=== PATIENT | female | born 1950 | race Caucasian/White ===

== ENCOUNTER 2021-02-04 07:56 | Outpatient (CLI) | payer MEDICARE, SELFPAY ==
--- NOTE | ~2021-02-04 | MM_ITS ---
EXAMINATION: MM screening siobhan BI w audrey HISTORY: Screening TECHNIQUE: Craniocaudal and mediolateral oblique 3-D tomosynthesis images were obtained and synthetic 2-D images were generated. CAD analysis was submitted and interpreted. COMPARISON: Comparison to multiple prior studies sequentially, with oldest reviewed study dated 10/14. BREAST PARENCHYMAL COMPOSITION: The breasts are almost entirely fatty. FINDINGS: There is no evidence of suspicious mass, calcification, or architectural distortion to sugg est malignancy in either breast. There has been no suspicious interval change. IMPRESSION: 1. No mammographic evidence of malignancy. 2. Recommend routine screening mammography in one year. BI-RADS Category 1: Negative Reviewed, dictated and finalized at location A.
== END 2021-02-04 07:57 | disposition home or self-care (01) ==
LOC: CHSIMG 08:00
PROVIDERS: PCP Internal Medicine; Visit Provider Internal Medicine
DX: Z12.31 Encounter for screening mammogram for malignant neoplasm of breast (principal)
CPT/HCPCS: 77063; 77067

== ENCOUNTER 2021-03-19 11:33 | Outpatient (CLI) | payer MEDICARE, SELFPAY ==
--- NOTE | ~2021-03-19 | US_ITS ---
EXAMINATION: US venous doppler [facility] DATE: 03/19/2021 12:07 INDICATION: Left lower extremity pain and swelling TECHNIQUE: Stoner scale images without and with compression and Doppler images of the left lower extrem ity veins were obtained. COMPARISON: None FINDINGS: The left common femoral vein, profunda femoral vein, femoral vein, popliteal vein, peroneal trunk, and posterior tibial veins are patent. There is thrombosis of the greater saphenous vein. IMPRESSION: 1. Superficial venous thrombosis of the greater saphenous vein. No evidence of deep venous thrombosis . Reviewed, dictated and finalized at location B. IMPRESSION: 1. Superficial venous thrombosis of the greater saphenous vein. No evidence of deep venous thrombosis.
== END 2021-03-19 11:34 | disposition home or self-care (01) ==
LOC: CHSLAB 11:35
PROVIDERS: PCP Internal Medicine; Visit Provider Internal Medicine
DX: M79.605 Pain in left leg (principal); M79.89 Other specified soft tissue disorders
CPT/HCPCS: 93971

== ENCOUNTER 2021-04-21 11:06 | Outpatient (CLI) | payer MEDICARE, SELFPAY ==
--- NOTE | ~2021-04-21 | US_ITS ---
EXAMINATION: US venous doppler [facility] EXAM DATE: 04/21/2021 11:30 INDICATION: Left leg pain, thrombophlebitis. TECHNIQUE: Multiple grayscale, color flow and Doppler images of the left lower extremity deep venous system obtained and reviewed. There is no prior study for comparison. FINDINGS: LEFT SIDE Common femoral: -------- Normal. Profunda femoral: ------- Normal. Femoral: Normal. Popliteal: Normal. Posterior tibial: --------- Normal. Peroneal: Normal. Gastrocnemius: Not visualized. Soleus: Not visualized. Greater saphenous: -----Nonthrombosed proximal and mid aspects. Anterior branch at ankle demonstratin g thrombus. Finding was present on prior study as well. Lesser saphenous: ------ Not visualized. IMPRESSION: 1. Left ankle thrombophlebitis. 2. No DVT. Reviewed, dictated and finalized at location B.
== END 2021-04-21 11:07 | disposition home or self-care (01) ==
LOC: CHSIMG 11:08
PROVIDERS: PCP Internal Medicine; Visit Provider Internal Medicine
DX: I80.3 Phlebitis and thrombophlebitis of lower extremities, unspecified (principal)
CPT/HCPCS: 93971

== ENCOUNTER 2021-07-12 19:08 | Inpatient (IN) | payer MEDICARE, SELFPAY ==
--- NOTE | ~2021-07-12 | XR_ITS ---
EXAMINATION: XR chest 1V portable EXAM DATE: 07/12/2021 20:22 INDICATION: Dyspnea w/ cough and weakness. TECHNIQUE: Portable AP frontal chest x-ray was obtained. There is no prior study for comparison. FINDINGS: There is right midlung zone granuloma. Patchy ill-defined left mid and lower lung zone airs pace disease, could be developing acute infectious process. There is no pneumothorax suspected. No si zable pleural effusion. Cardiomediastinal silhouette is normal. IMPRESSION: 1. Ill-defined left mid and lower lung zone airspace disease, could be developing pneumonia. Reviewed, dictated and finalized at location A. ER MACHINE OPERATOR IMPRESSION: 1. Ill-defined left mid and lower lung zone airspace disease, could be develop ing pneumonia.
[2021-07-12 20:06] VITALS: BP 108/70; PULSE 75; RESP 18; TEMP 36.8; O2SAT 90
[2021-07-12 20:21] LABS: Hematocrit 37.8 % (35.0-42.0); Hemoglobin 12.7 g/dL (11.7-13.8); Mean Corpuscular HGB Conc 33.6 g/dL (32.0-36.0); Mean Corpuscular Hemoglobin 31.5 pg (27.0-31.0); Mean Corpuscular Volume 93.8 fL (78.0-102.0); Mean Platelet Volume 9.7 fl (9.2-11.8); Platelet Count Result 178 K/mm3 (150-420); Red Blood Count 4.03 M/mm3 (4.20-5.40); Red Cell Distribution Width 14.4 % (11.6-14.4); White Blood Count 5.7 K/mm3 (4.8-10.8)
[2021-07-12 20:24] VITALS: PULSE 75; RESP 18; O2SAT 90
[2021-07-12] MEDS: SODIUM CHLORIDE 0.9% IV 1,000 ML 999 ML IV CONT (20:34)
[2021-07-12 20:35] LABS: Alanine Aminotransferase 55 U/L (14-59); Albumin Level 3.2 g/dL (3.4-5.0); Alkaline Phosphatase 66 U/L (46-116); Anion Gap 11 mmol/L (8-16); Aspartate Amino Transferase 64 U/L (15-37); Bilirubin,Total 0.5 mg/dL (0.00-1.00); Blood Urea Nitrogen 77 mg/dL (7-18); Calcium 8.4 mg/dL (8.5-10.1); Carbon Dioxide 24 mmol/L (21-32); Chloride 105 mmol/L (98-108); Estimated CRCL calculation 11 ml/min; Estimated Glomerular Filt Rate 19; Glucose 144 mg/dL (70-99); Osmolality Calculated 316 mOsm/kg (285-295); Potassium 4.7 mmol/L (3.5-5.1); Sodium 140 mmol/L (136-145); Total Protein 7.6 g/dL (6.4-8.2)
[2021-07-12 20:39] LABS: Band Neutrophils Percent 1 % (0-6); Basophils Absolute Manual 0.05 K/mm3 (0-0.1); Basophils Percent Manual 1 % (0-1); Eosinophils Percent Manual 0 % (1-6); Lymphocytes Absolute Manual 0.85 K/mm3 (1.1-4.5); Lymphocytes Percent Manual 15 % (18-44); Monocytes Absolute Manual 0.34 K/mm3 (0.1-0.90); Monocytes Percent Manual 6 % (3-9); Neutrophils Absolute Manual 4.44 K/mm3 (1.7-7.2); Neutrophils Percent Manual 77 % (46-73); Platelet Estimate Adequate (Adequate); Total Cells Counted 100
[2021-07-12] MEDS: ALBUTEROL SULFATE (*SP) INHALER 4 PUFF INHALATION (20:43)
[2021-07-12 20:55] VITALS: PULSE 75
[2021-07-12 20:57] LABS: Influenza A QL RT-PCR Negative (Negative); Influenza B QL RT-PCR Negative (Negative); SARS-CoV-2 RNA PCR Positive (Negative)
--- NOTE | 2021-07-12 21:06 | PC.NURSE ---
Pt reports Diarrhea for a week, now reporting thrust and requesting water. LULY Stephenson advised. Order received for Ice chips. Pt tolerating well.
--- NOTE | 2021-07-12 21:32 | ECG_ITS ---
Measurements Intervals [place] Rate: 77 P: 46 IA: 155 QRS: 16 QRSD: 110 T: 11 QT: 373 QTc: 424 Interpretive Statements SINUS RHYTHM WITH SINUS ARRHYTHMIA BORDERLINE T WAVE ABNORMALITY- INFERIOR LEADS BASELINE ARTIFACT- I, II, III, AVR, AVL, AVF BORDERLINE ECG Electronically Signed On 07-13-2021 5:26:05 ANALYSIS MANAGER by Anders Dukes D.O.
[2021-07-12] MEDS: ACETAMINOPHEN 500 MG TABLET 1000 MG PO (21:43)
--- NOTE | 2021-07-12 21:55 | PC.NURSE ---
Pt cont sating in the upper 80s and 90s. ERMD advised Pt placed on 2 L o2 per N/C. Pt currently sating 94 with supplement.
--- NOTE | 2021-07-12 22:05 | ED.SOB ---
HPI - SOB/Dyspnea General Chief Complaint: Unspecified Stated Complaint: POSSIBLE COVID + Time Seen by Provider: 07/12/21 20:00 Source: patient and family Mode of arrival: wheelchair Limitations: clinical condition History of Present Illness HPI Narrative: 71-year-old woman with a history of hypertension comes in today complaining of fever, fatigue, shortness of breath, weakness, body aches, headache, nonproductive cough and congestion that has been present for the past 10 days. She states her symptoms are getting gradually worse. She states she has had diarrhea every day and her son states that she has not been urinating. She denies history heart and lung disease, smoking, and diabetes has had no chest pain, sputum production, or hemoptysis. Her was recently admitted to this hospital for hypoxia and COVID pneumonia. MD elicited complaint: shortness of breath and cough Onset (ago): day(s) Timing: constant and progressively worsening Severity: severe Exacerbating factors: exertion Relieving factors: rest and upright position Associated symptoms: fever, cough, orthopnea, nausea/vomiting, dizziness and lightheadedness Treatment prior to arrival: none Related Data Home oxygen amount: none Home Medications Medication Instructions Recorded Confirmed olmesartan-hydrochlorothiazide 40 tablet PO DAILY 07/12/21 07/12/21 Allergies Allergy/AdvReac Type Severity Reaction Status Date / Time No Known Allergies Allergy Verified 07/12/21 21:08 Review of Systems Review of Systems: All systems reviewed & are unremarkable except as noted in HPI and below Constitutional: Constitutional: Denies chills, Reports fatigue, Reports fever(s) and Reports weakness Eyes: Eyes: Reports change in vision and Reports photophobia ENT: Denies dysphagia, Reports nasal congestion and Denies sore throat Cardiovascular: Cardiovascular: Denies chest pain and Denies radiating jaw, neck or arm pain Respiratory: Respiratory: Reports chest congestion, Reports cough, Reports dyspnea and Reports wheezing Gastrointestinal: Gastrointestinal: Denies abdominal pain, Reports diarrhea, Denies nausea and Denies vomiting Genitourinary: Genitourinary: Denies nocturia and Denies dysuria Musculoskeletal: Musculoskeletal: Reports back pain, Reports myalgias, Denies arthralgias and Denies joint swelling Integumentary/Breasts: Skin/Breast: Denies pruritus, Denies erythema and Denies rash Neurologic: Denies confusion, Denies vertigo, Denies dizziness, Denies syncope, Reports headache(s), Denies focal weakness and Reports weakness Hematologic/Lymphatic: Hematologic/Lymphatic: Denies easy bleeding and Denies easy bruising Allergic/Immunologic: Allergic/Immunologic: Denies lip swelling and Denies throat swelling [facility] Past Medical History Medical History Hypertension Social History Social History (Updated 07/12/21 @ 22:09 by Mati Stephenson MD) Smoking status: Never smoker Alcohol intake: never Substance use: never Living arrangements: with family Exam Const: General: ill appearing acutely Nutritional Appearance: obese Limitations: altered mental status (Mildly somnolent. Talks in a whisper) Other: [id number] acute distress. HENMT: Head: normal to inspection Ears: external ears normal, TM's normal bilaterally and EAC's normal General nose exam: Normal nares present Face and sinus: normal facial exam Mouth: Yes dry mucous membranes Throat: posterior oropharynx normal Eyes: Conjunctivae: conjunctivae normal Pupils: Equal, round and reactive pupils present EOM: EOMs intact bilaterally Resp: Effort & Inspection: normal respiratory effort and not labored Auscultation: clear to auscultation bilaterally, no rales, no rhonchi and no wheezes Cardio: Rate: regular rate Rhythm: regular rhythm Heart sounds: no murmurs GI: GI Palp: Yes Soft to palpation, No Tenderness to palpat
--- NOTE | 2021-07-12 22:48 | PC.NURSE ---
Pt. report called to Tereza NEGRETE at this time. Pt. Resting comfortable on stretcher preped for trans to floor.
[2021-07-12 23:30] VITALS: O2SAT 92
[2021-07-12 23:35] VITALS: PULSE 66; RESP 18; O2SAT 92
[2021-07-13] VITALS (7 sets, daily range): BP systolic 97–119; BP diastolic 54–69; PULSE 66–94; RESP 16–20; TEMP 36.2–37.1; O2SAT 90–96
--- NOTE | 2021-07-13 00:25 | ADMGEN ---
This patient, Alicia Castrejon, was admitted to 2nd Floor Room 210-1. Patient/family oriented to hospital policies and general routines including ID bracelet, bed and alarms, visiting hours, pain management, procedures, bathroom and other care routines, personal items, smoking policy, room service/diet, and visiting hours. Information on how to activate the Rapid Response Team has been discussed. Patient/Family are encouraged to report perceived risks to care and to ask questions if they do not understand what they are told or what they should do.
[2021-07-13] MEDS: SODIUM CHLORIDE 0.9% IV 1,000 ML 150 ML IV CONT ×2 (00:44→11:05)
--- NOTE | 2021-07-13 01:00 | PC.NURSE ---
Size 16 geronimo catheter inserted as ordered for accurate I/O due to renal fluid. Immediate return of yellow urine.
[2021-07-13 05:37] LABS: Hematocrit 34.6 % (35.0-42.0); Hemoglobin 11.1 g/dL (11.7-13.8); Mean Corpuscular HGB Conc 32.1 g/dL (32.0-36.0); Mean Corpuscular Hemoglobin 30.2 pg (27.0-31.0); Mean Corpuscular Volume 94.3 fL (78.0-102.0); Mean Platelet Volume 9.7 fl (9.2-11.8); Platelet Count Result 165 K/mm3 (150-420); Red Blood Count 3.67 M/mm3 (4.20-5.40); Red Cell Distribution Width 14.4 % (11.6-14.4); White Blood Count 4.1 K/mm3 (4.8-10.8)
[2021-07-13] MEDS: ALBUTEROL SULFATE (*SP) INHALER 4 PUFF INHALATION ×4 (05:48→20:39)
[2021-07-13 05:51] LABS: Alanine Aminotransferase 47 U/L (14-59); Albumin Level 2.7 g/dL (3.4-5.0); Alkaline Phosphatase 59 U/L (46-116); Anion Gap 12 mmol/L (8-16); Aspartate Amino Transferase 52 U/L (15-37); Bilirubin,Total 0.3 mg/dL (0.00-1.00); Blood Urea Nitrogen 72 mg/dL (7-18); Calcium 7.7 mg/dL (8.5-10.1); Carbon Dioxide 23 mmol/L (21-32); Chloride 107 mmol/L (98-108); Estimated CRCL calculation 13 ml/min; Estimated Glomerular Filt Rate 24; Glucose 123 mg/dL (70-99); Osmolality Calculated 316 mOsm/kg (285-295); Potassium 4.4 mmol/L (3.5-5.1); Sodium 142 mmol/L (136-145); Total Protein 6.5 g/dL (6.4-8.2)
[2021-07-13 06:05] LABS: Band Neutrophils Percent 3 % (0-6); Basophils Percent Manual 0 % (0-1); Eosinophils Absolute Manual 0.04 K/mm3 (0.02-0.5); Eosinophils Percent Manual 1 % (1-6); Lymphocytes Absolute Manual 1.27 K/mm3 (1.1-4.5); Lymphocytes Percent Manual 31 % (18-44); Monocytes Absolute Manual 0.08 K/mm3 (0.1-0.90); Monocytes Percent Manual 2 % (3-9); Neutrophils Percent Manual 63 % (46-73); Platelet Estimate Adequate (Adequate); Total Cells Counted 100
[2021-07-13 06:06] LABS: Atypical Lymphocytes Present
[2021-07-13] MEDS: DEXAMETHASONE SOD PHOS INJ 4 MG/ML VIAL 6 MG IV PUSH (08:56)
[2021-07-13] MEDS: ENOXAPARIN 40 MG/0.4 ML SYRINGE SUB-Q (08:57)
[2021-07-13] MEDS: guaiFENesin/DEXTROMETHORPHAN 5 ML UDC 10 ML PO ×3 (10:38→22:12)
--- NOTE | 2021-07-13 16:01 | PM.IMPN ---
Subjective Date/time seen: 07/13/21 16:01 Pt states her breathing is no better or worse other than a persistent cough that is non-productive today. No CP, Abdominal issues, fevers, chills, muscle or body aches, decreased appetite, taste changes. Pt has no immediate concerns at this time. BMP and weight in chart do not appear correct. Review of Systems Constitutional: Constitutional: Reports no additional constitutional complaints, Denies body ache(s), Denies chills, Denies fever(s) and Reports poor appetite Cardiovascular: Cardiovascular: Reports no additional cardiovascular complaints, Denies chest pain, Denies chest pain at rest and Denies chest pain with activity Respiratory: Respiratory: Reports cough, Reports dyspnea and Reports dyspnea on exertion Gastrointestinal: Gastrointestinal: Denies abdominal pain Genitourinary: Genitourinary: Reports no additional female genitourinary complaints Musculoskeletal: Musculoskeletal: Reports no additional musculoskeletal complaints and Reports as per HPI Neurologic: Reports system reviewed and no additional complaints, except as documented, Reports as per HPI, Denies vertigo and Denies dizziness Psychiatric: Psychiatric: Reports no additional psychiatric complaints Exam Const: General: cooperative, no acute distress, well developed, alert, awake, Physically active and tired appearing Nutritional Appearance: obese morbidly obese Resp: Effort & Inspection: Actively coughing dry Auscultation: rhonchi (throughout) Cardio: Rate: regular rate Heart sounds: S1 normal heart sound present and S2 normal heart sound present GI: GI Palp: Yes Soft to palpation, No Tenderness to palpation present (GI) and No Guarding due to palpation present (GI) Auscultation: normal bowel sounds Skin: General skin exam: normal color and dry skin Neuro: General: oriented to person, oriented to place, oriented to time and CN's II-XI intact bilaterally (grossly intact) Cognition (Neuro): normal cognition Speech: normal speech Motor exam (neuro): 5/5 motor strength present throughout Extrem: General: no pedal edema and no calf tenderness Psych: Appearance: grossly normal Mental Status: mental status grossly normal Speech and movement: Normal speech and movement present Affect: normal affect Attitude: cooperative Thought process: Normal thought process present Objective Data Vital Signs Vital Signs: Vital Signs - 24 hr 07/12/21 20:06 07/12/21 20:24 07/12/21 20:55 Temperature 98.2 F Pulse Rate 75 75 75 Respiratory Rate 18 18 Blood Pressure 108/70 Pulse Oximetry 90 90 07/12/21 23:30 07/12/21 23:35 07/13/21 00:00 Temperature 97.9 F Pulse Rate 66 66 Respiratory Rate 18 16 Blood Pressure 109/66 Pulse Oximetry 92 92 92 07/13/21 04:00 07/13/21 08:00 07/13/21 12:00 Temperature 97.6 F 97.2 F L 98.7 F Pulse Rate 66 70 79 Respiratory Rate 16 20 20 Blood Pressure 101/59 L 104/66 97/54 L Pulse Oximetry 92 96 90 Intake/Output Intake/Output: Intake & Output 07/10/21 07/11/21 07/12/21 07/13/21 23:59 23:59 23:59 23:59 Intake Total 1050 2427.5 Output Total 200 Balance 1050 2227.5 Meds/Results Medications: Active Medications Generic Name Dose Route Start Last Admin Trade Name Freq PRN Reason Stop Dose Admin Albuterol 4 puff 07/13/21 06:30 07/13/21 13:39 Albuterol Sulfate (*Sp) Inhaler INHALATION 4 puff QIDRT GOLDEN Administration Dexamethasone Sodium Phosphate 6 mg 07/13/21 09:00 07/13/21 08:56 Dexamethasone Sod Phos Inj 4 Mg/Ml Vial IV PUSH 07/22/21 09:01 6 mg DAILY GOLDEN Administration Enoxaparin Sodium 40 mg 07/13/21 09:00 07/13/21 08:57 Enoxaparin 40 Mg/0.4 Ml Syringe SUB-Q 40 mg DAILY GOLDEN Administration Guaifenesin/Dextromethorphan 10 ml 07/13/21 14:00 07/13/21 13:38 Guaifenesin/Dextromethorphan 5 Ml Udc PO 10 ml Q8HR GOLDEN Administration Azithromycin 500 mg in 250 mls @ 250 mls/hr 07/13/21 21:00 Zithromax IVPB
--- NOTE | 2021-07-13 16:08 | PM.IMHP ---
H&P: HPI History of Present Illness Date/Time: 07/13/21 16:08 Alicia Castrejon is a 71 year old female admitted for COVID, ARF, and Pneumonia. her symptoms have been ongoing for about 10 days. She tested positive for COVID on 07/12/2021. Pt states she has been having increased SOB and feeling tired. Her appetite has been decreased and food just does not taste good enough to want to eat. Pt denies CP, abdominal issues like nausea and vomiting or diarrhea, no dizziness, fevers or chills. She has a PMHx of HTN and takes Olmesartan-HCTZ. <DIPIKA Hu - Last Filed: 07/13/21 16:24> Chief Complaint: SOB, weakness, headache, non-productive cough <DIPIKA Hu - Last Filed: 07/13/21 16:24> Review of Systems Constitutional: Constitutional: Reports no additional constitutional complaints, Denies body ache(s), Denies chills, Denies fever(s) and Reports poor appetite <DIPIKA Hu - Last Filed: 07/13/21 16:24> ENT: Denies vertigo and Denies dizziness <DIPIKA Hu - Last Filed: 07/13/21 16:24> Cardiovascular: Cardiovascular: Reports no additional cardiovascular complaints, Denies chest pain, Denies chest pain at rest, Denies chest pain with activity, Reports dyspnea and Reports dyspnea on exertion <DIPIKA Hu - Last Filed: 07/13/21 16:24> Respiratory: Respiratory: Reports cough, Reports dyspnea and Reports dyspnea on exertion <DIPIKA Hu - Last Filed: 07/13/21 16:24> Gastrointestinal: Gastrointestinal: Denies abdominal pain <DIPIKA Hu - Last Filed: 07/13/21 16:24> Genitourinary: Genitourinary: Reports no additional female genitourinary complaints <DIPIKA Hu - Last Filed: 07/13/21 16:24> Musculoskeletal: Musculoskeletal: Reports no additional musculoskeletal complaints and Reports as per HPI <DIPIKA Hu - Last Filed: 12/07/21 16:24> Neurologic: Reports system reviewed and no additional complaints, except as documented, Reports as per HPI, Denies vertigo and Denies dizziness <DIPIKA Hu - Last Filed: 07/13/21 16:24> Psychiatric: Psychiatric: Reports no additional psychiatric complaints <DIPIKA Hu - Last Filed: 07/13/21 16:24> [facility] Past Medical History Medical History: Medical History Hypertension <DIPIKA Hu - Last Filed: 07/13/21 16:24> Social History Social History: Social History Smoking status: Never smoker Alcohol intake: never Substance use: never Living arrangements: with family Spiritual care concerns: No <DIPIKA Hu - Last Filed: 07/13/21 16:24> Meds Home Medications and Allergies Home medications: Home Medications Medication Instructions Recorded Confirmed Type olmesartan-hydrochlorothiazide 40 tablet PO DAILY 07/12/21 07/12/21 History <DIPIKA Hu - Last Filed: 07/13/21 16:24> Allergies/Adverse reactions: Allergies Allergy/AdvReac Type Severity Reaction Status Date / Time codeine Allergy Unknown Verified 07/13/21 01:35 strawberry Allergy Unknown Verified 07/13/21 01:35 <DIPIKA Hu - Last Filed: 07/13/21 16:24> Vital Signs Vital Signs - 24 hr 07/12/21 20:06 07/12/21 20:24 07/12/21 20:55 Temperature 98.2 F Pulse Rate 75 75 75 Respiratory Rate 18 18 Blood Pressure 108/70 Pulse Oximetry 90 90 07/12/21 23:30 07/12/21 23:35 07/13/21 00:00 Temperature 97.9 F Pulse Rate 66 66 Respiratory Rate 18 16 Blood Pressure 109/66 Pulse Oximetry 92 92 92 07/13/21 04:00 07/13/21 08:00 07/13/21 12:00 Temperature 97.6 F 97.2 F L 98.7 F Pulse Rate 66 70 79 Respiratory Rate 16 20 20 Blood Pressure 101/59 L 104/66 97/54 L Pulse Oximetry 92 96 90 <Sunil Richardson, STEAM BLOCKER-C - Last Filed: 07/13/21 16:24> Exam Const: General: cooperative, no acute
[2021-07-14] VITALS (9 sets, daily range): BP systolic 106–140; BP diastolic 61–80; PULSE 72–88; RESP 20–22; TEMP 36–37.1; O2SAT 92–96
[2021-07-14] MEDS: SODIUM CHLORIDE 0.9% IV 1,000 ML 75 ML IV CONT ×2 (00:20→13:00)
[2021-07-14 05:24] LABS: Hematocrit 32.8 % (35.0-42.0); Hemoglobin 10.8 g/dL (11.7-13.8); Mean Corpuscular HGB Conc 32.9 g/dL (32.0-36.0); Mean Corpuscular Hemoglobin 31.1 pg (27.0-31.0); Mean Corpuscular Volume 94.5 fL (78.0-102.0); Mean Platelet Volume 9.6 fl (9.2-11.8); Platelet Count Result 203 K/mm3 (150-420); Red Blood Count 3.47 M/mm3 (4.20-5.40); White Blood Count 3.3 K/mm3 (4.8-10.8)
[2021-07-14 05:40] LABS: Alanine Aminotransferase 43 U/L (14-59); Albumin Level 2.6 g/dL (3.4-5.0); Alkaline Phosphatase 61 U/L (46-116); Anion Gap 12 mmol/L (8-16); Aspartate Amino Transferase 38 U/L (15-37); Bilirubin,Total 0.3 mg/dL (0.00-1.00); Blood Urea Nitrogen 38 mg/dL (7-18); Calcium 7.9 mg/dL (8.5-10.1); Carbon Dioxide 23 mmol/L (21-32); Chloride 109 mmol/L (98-108); Estimated CRCL calculation 19 ml/min; Estimated Glomerular Filt Rate 37; Glucose 142 mg/dL (70-99); Osmolality Calculated 309 mOsm/kg (285-295); Potassium 4.5 mmol/L (3.5-5.1); Sodium 144 mmol/L (136-145); Total Protein 6.7 g/dL (6.4-8.2)
[2021-07-14] MEDS: guaiFENesin/DEXTROMETHORPHAN 5 ML UDC 10 ML PO ×3 (06:07→21:00)
[2021-07-14] MEDS: ALBUTEROL SULFATE (*SP) INHALER 4 PUFF INHALATION ×4 (06:08→20:30)
[2021-07-14] MEDS: DEXAMETHASONE SOD PHOS INJ 4 MG/ML VIAL 6 MG IV PUSH (08:25)
[2021-07-14] MEDS: ENOXAPARIN 40 MG/0.4 ML SYRINGE SUB-Q (08:25)
--- NOTE | 2021-07-14 11:21 | PC.NURSE ---
up in room this am. no o2 on. spo 86%. with o2@ 2l per nc and rest for immediately back up to 93%
--- NOTE | 2021-07-14 12:04 | PM.IMPN ---
Progress Note: A&P Assessment and Plan (1) Pneumonia: Qualifiers: Laterality: left Lung location: lower lobe of lung Pneumonia type: due to unspecified organism Qualified Code(s): J18.9 - Pneumonia, unspecified organism <Sunil RichardsonHARDEEPC - Last Filed: 07/14/21 12:20> Code(s): J18.9 - Pneumonia, unspecified organism <Sunil RichardsonWILD-C - Last Filed: 07/14/21 12:20> Status: Acute <Sunil RichardsonWILD-C - Last Filed: 07/14/21 12:20> Assessment and Plan: Pt is on Azithromycin and Rocephin, supplemental O2 at 2 L/min with SpO2 90-96%, non-productive cough, she has Albuterol and Robitussin DM 07/14/2021 Continue with Azithromycin and Rocephin, no change in oxygen demand and continues on 2 L/min NC with SpO2 92% or better, Desats with activity and recovers quickly <Sunil RichardsonWILD-C - Last Filed: 07/14/21 12:20> (2) COVID-19: Code(s): U07.1 - COVID-19 <Sunil RichardsonIWLD-C - Last Filed: 07/14/21 12:20> Status: Acute <Sunil RichardsonWILD-C - Last Filed: 07/14/21 12:20> Assessment and Plan: Decadron, Azithromycin, Rocephin, Supplemental Oxygen, Renal function too low for Remdesivir, Isolation, monitoring respiratory status, Cardiac Monitoring 07/14/2021 Continue as noted above, Cr 1.42, eCrCl 19 both improved a little <Sunil RichardsonWILD-C - Last Filed: 07/14/21 12:20> (3) Acute renal failure (ARF): Qualifiers: Acute renal failure type: unspecified Qualified Code(s): N17.9 - Acute kidney failure, unspecified <Sunil RichardsonWILD-C - Last Filed: 07/14/21 12:20> Code(s): N17.9 - Acute kidney failure, unspecified <Sunil BaxterWILD herzog-C - Last Filed: 07/14/21 12:20> Status: Acute <DIPIKA Hu - Last Filed: 07/14/21 12:20> Assessment and Plan: Pt currently with IVF at 75 ml/h for gentyl hydration, no signs of fluid overload, Cr improved and currently 2.07, with eCrCl 13, and eGFR at 24 07/14/2021 Renal function improving as noted under COVID-19 assessment, continue with IVF NS 75 ml/h and check in AM, encourage PO fluids. <DIPIKA Hu - Last Filed: 07/14/21 12:20> (4) Hypertension: Code(s): I10 - Essential (primary) hypertension <DIPIKA Hu - Last Filed: 07/14/21 12:20> Status: Acute <DIPIKA Hu - Last Filed: 07/14/21 12:20> Assessment and Plan: Current BP a little soft at 90s-110/50s-70, currently No BP medications given 07/14/2021 BP stable, HR 80s, continue without change at this time. <DIPIKA Hu - Last Filed: 07/14/21 12:20> Additional Plan I have examined this patient and agree with the physical examination, assessment and plan. The patient presented with pneumonia. Patient tested positive for COVID. The patient is on Rocephin, Zithromax and Decadron. The patient is not a candidate for remdesivir in view of her renal failure. <DIPIKA Hu - Last Filed: 07/14/21 12:20> Subjective Date/time seen: 07/14/21 12:04 Alicia sitting comfortably in her chair in no distress. States breathing is a little better. She states her coughing is improved. She denies SOB while sitting and no CP. Pt asked about her who is a Patient here and she was updated on his status. Pt has no other concerns at this time. <DIPIKA Hu - Last Filed: 07/14/21 12:20> Review of Systems Review of Systems: All systems reviewed & are unremarkable except as noted in HPI and below <DIPIKA Hu - Last Filed: 07/14/21 12:20> Exam Const: General: cooperative, comfortable, no acute distress, well developed, alert, awake and Physically active <DIPIKA Hu - Last Filed: 07/14/21 12:20> Nutritional Appearance: obese <DIPIKA Hu - Last Filed: 07/14/21 12:20> Resp: Effort & Inspection: normal respiratory effort <DIPIKA Hu - Last File
[2021-07-15] VITALS (7 sets, daily range): BP systolic 110–145; BP diastolic 60–79; PULSE 76–85; RESP 14–20; TEMP 36.7–37; O2SAT 92–94
[2021-07-15 05:13] LABS: Hematocrit 32.7 % (35.0-42.0); Hemoglobin 10.8 g/dL (11.7-13.8); Mean Corpuscular Hemoglobin 30.9 pg (27.0-31.0); Mean Corpuscular Volume 93.7 fL (78.0-102.0); Mean Platelet Volume 9.3 fl (9.2-11.8); Platelet Count Result 218 K/mm3 (150-420); Red Blood Count 3.49 M/mm3 (4.20-5.40); White Blood Count 4.4 K/mm3 (4.8-10.8)
[2021-07-15 05:33] LABS: Alanine Aminotransferase 52 U/L (14-59); Albumin Level 2.6 g/dL (3.4-5.0); Alkaline Phosphatase 60 U/L (46-116); Anion Gap 14 mmol/L (8-16); Aspartate Amino Transferase 48 U/L (15-37); Bilirubin,Total 0.3 mg/dL (0.00-1.00); Blood Urea Nitrogen 31 mg/dL (7-18); Carbon Dioxide 20 mmol/L (21-32); Chloride 111 mmol/L (98-108); Estimated CRCL calculation 44 ml/min; Estimated Glomerular Filt Rate 38; Glucose 133 mg/dL (70-99); Osmolality Calculated 308 mOsm/kg (285-295); Potassium 4.6 mmol/L (3.5-5.1); Sodium 145 mmol/L (136-145); Total Protein 6.6 g/dL (6.4-8.2)
[2021-07-15] MEDS: guaiFENesin/DEXTROMETHORPHAN 5 ML UDC 10 ML PO (06:10)
[2021-07-15] MEDS: ALBUTEROL SULFATE (*SP) INHALER 4 PUFF INHALATION ×2 (06:15→10:30)
[2021-07-15] MEDS: DEXAMETHASONE SOD PHOS INJ 4 MG/ML VIAL 6 MG IV PUSH (09:28)
[2021-07-15] MEDS: ENOXAPARIN 40 MG/0.4 ML SYRINGE 30 MG SUB-Q (09:29)
--- NOTE | 2021-07-15 11:25 | HOMEO2EVAL ---
Evaluation was performed at [facility] Home Oxygen Evaluation RC: Home Oxygen (O2) Evaluation Start: 07/15/21 10:52 Freq: ONCE Status: Active Protocol: RPE Activity Type Activity Date Activity User E-Sign Co-Sign Detail Recorded Client Recorded Date Recorded By Document 07/15/21 11:05 SJB [id number] 07/15/21 11:25 SJB Document 07/15/21 11:12 SJB [id number] 07/15/21 11:25 SJB 07/15/21 07/15/21 11:05 11:12 Home O2 Evaluation Test Phase Resting Exercise Oxygen Delivery Room Air Room Air Pulse Oximetry (90-100 %) 93 92 Pulse Rate (60-100 beats/min) 76 82 Activity Tolerance Good Rating of Perceived Dyspnea (PD) +1 Mild, Noticeable to the Participant but Not to an Observer Rate of Perceived Exertion (PE) 11 Fairly light Ambulation Distance (feet) 400 Home Oxygen Evaluation Comments Will begin walk Pt walked on r/a. pushing w/c on room air approx 400 ft. Tri very well, talking throughout exercise. Did well with PLB also. Sp02 was 92% on walk and HR WNL also . Treatment Charges O2 Evaluation - Inpatient
--- NOTE | 2021-07-15 11:32 | PM.DS ---
DS: Admitting Diagnosis Discharge Date 07/15/2021 Admitting Diagnosis COVID, ARF, Pneumonia, HTN DS: Discharge Diagnosis Discharge Diagnosis (1) Pneumonia: Qualifiers: Laterality: left Lung location: lower lobe of lung Pneumonia type: due to unspecified organism Qualified Code(s): J18.9 - Pneumonia, unspecified organism Code(s): J18.9 - Pneumonia, unspecified organism Status: Acute Assessment and Plan: Pt is on Azithromycin and Rocephin, supplemental O2 at 2 L/min with SpO2 90-96%, non-productive cough, she has Albuterol and Robitussin DM 07/14/2021 Continue with Azithromycin and Rocephin, no change in oxygen demand and continues on 2 L/min NC with SpO2 92% or better, Desats with activity and recovers quickly 07/15/2021 Will DC with Azithromycin to complete course, Pt had 6 minute walk test and does not qualify for home oxygen at this time. (2) COVID-19: Code(s): U07.1 - COVID-19 Status: Acute Assessment and Plan: Decadron, Azithromycin, Rocephin, Supplemental Oxygen, Renal function too low for Remdesivir, Isolation, monitoring respiratory status, Cardiac Monitoring 07/14/2021 Continue as noted above, Cr 1.42, eCrCl 19 both improved a little 07/15/2021 6 minute walk test performed and Pt does not qualify for home oxygen at this time. Will continue Decadron to complete course. Pt to quarantine total 10 days and then f/u with PCP. (3) Acute renal failure (ARF): Qualifiers: Acute renal failure type: unspecified Qualified Code(s): N17.9 - Acute kidney failure, unspecified Code(s): N17.9 - Acute kidney failure, unspecified Status: Acute Assessment and Plan: Pt currently with IVF at 75 ml/h for gentyl hydration, no signs of fluid overload, Cr improved and currently 2.07, with eCrCl 13, and eGFR at 24 07/14/2021 Renal function improving as noted under COVID-19 assessment, continue with IVF NS 75 ml/h and check in AM, encourage PO fluids. 07/15/2021 Improving, instructed Pt to drink more water throughout the day. Cr 1.37, eCrCl 44, Pt to follow up with PCP (4) Hypertension: Code(s): I10 - Essential (primary) hypertension Status: Acute Assessment and Plan: Current BP a little soft at 90s-110/50s-70, currently No BP medications given 07/14/2021 BP stable, HR 80s, continue without change at this time. 07/15/2021 VSS, No changes need or additions needed in medications. DS: Summary Hospital Course Hospital Course: Pt has done well recovering from her COVID. Her O2 requirement improved and she passed the home oxygen walk test. Time Spent with Patient Time attestation: Total time spent providing and/or coordinating discharge services: < 30 Minutes Exam Const: General: cooperative, comfortable, no acute distress, well developed, alert, awake and Physically active Nutritional Appearance: obese Resp: Effort & Inspection: normal respiratory effort and not labored Auscultation: rhonchi (minimal bases) Cardio: Rate: regular rate Heart sounds: S1 normal heart sound present and S2 normal heart sound present GI: GI Palp: Yes Soft to palpation and No Tenderness to palpation present (GI) Skin: General skin exam: normal color and dry skin Neuro: General: oriented to person, oriented to place and oriented to time Cranial nerves: Yes CN's II-XII intact bilaterally (grossly intact) Cognition (Neuro): normal cognition Speech: normal speech Motor exam (neuro): 5/5 motor strength present throughout Extrem: General: no pedal edema and no calf tenderness Psych: Affect: normal affect Attitude: cooperative Thought process: Normal thought process present DS: Data Data Completed and Pending Labs on day of discharge: Labs from last 24 hours 07/15/21 07/15/21 05:01 05:01 WBC 4.4 L RBC 3.49 L Hgb 10.8 L Hct 32.7 L MCV 93.7 MCH 30.9 MCHC 33.0 RDW 14.0 Plt Count 218 MPV 9.3 Sodium 145 Potassium 4.6 Chloride 111 H Carbon D
--- NOTE | 2021-07-15 14:48 | PC.NURSE ---
Pt discharged with VSS. Discharge instructions given to pt. Medication teaching done. Pt verbalized understanding of discharge instructions and medications. RN assisted pt to family car via WC and assisted into car.
[2021-07-22 09:57] LABS: Reference Lab Test Name PROCALCITONIN
== END 2021-07-15 14:40 | disposition home or self-care (01) | DRG 177 ==
LOC: CHSED 22:15 → CHS2ND 07-13 07:12
PROVIDERS: Nurse Practitioner Family; Admitting Provider Emergency Medicine; Emergency Provider Emergency Medicine; PCP Internal Medicine; Visit Provider Emergency Medicine
DX: U07.1 COVID-19 (principal); J18.9 Pneumonia, unspecified organism; N17.9 Acute kidney failure, unspecified; I10 Essential (primary) hypertension
CPT/HCPCS: 36415; 71045; 80053; 83605; 84145; 85025; 85027; 87040; 87502; 93005; 94618; 96361; 96365; 99285; A9270; C9803; J0456; J0696; J1100; J1650; J7030; U0003; U0005

== ENCOUNTER 2021-07-28 12:40 | Outpatient (CLI) | payer MEDICARE, SELFPAY ==
--- NOTE | ~2021-07-28 | XR_ITS ---
XR chest 2V DATE: 07/28/2021 12:59 INDICATION: Covid pneumonia TECHNIQUE: 2 views COMPARISON: 07/12/2021 portable AP chest FINDINGS: There are patchy infiltrates in both mid and lower lung zones suggesting bilateral pneumoni a. No pleural effusion or pulmonary vascular congestion or pneumothorax is detected. Normal heart size. Aortic calcification and mild unfolding. Diffuse osteopenia. There is dextroscoliosis and degenerative spurring of the thoracic spine. IMPRESSION: Patchy infiltrates in the mid and lower lung zones, new on the right since 07/12/2021 Reviewed, dictated and finalized at location B. OM FRAMING SPECIALIST IMPRESSION: Patchy infiltrates in the mid and lower lung zones, new on the righ t since 07/12/2021
== END 2021-07-28 12:41 | disposition home or self-care (01) ==
PROVIDERS: PCP Internal Medicine; Visit Provider Internal Medicine
DX: Z09 Encounter for follow-up examination after completed treatment for conditions other than malignant neoplasm (principal); U07.1 COVID-19; J12.82 Pneumonia due to coronavirus disease 2019
CPT/HCPCS: 71046

== ENCOUNTER 2021-08-25 12:17 | Outpatient (CLI) | payer MEDICARE, SELFPAY ==
--- NOTE | ~2021-08-25 | XR_ITS ---
EXAMINATION: XR chest 2V EXAM DATE: 08/25/2021 12:49 INDICATION: F/U COVID pneumonia in July. TECHNIQUE: Frontal and lateral projections of the chest obtained and reviewed. Comparison is made to prior examination from 07/28/2021. FINDINGS: There is some residual abdominal linear regions of atelectasis/scarring, with improvement in the other opacities compared to July. Right midlung zone granulomata. No pneumothorax or pleur al effusion. No evidence of acute airspace disease. Cardiomediastinal silhouette is normal. Mild thor acic spondylosis. IMPRESSION: Improvement in previously seen pneumonia with some scattered linear opacities consistent with atelectasis/scarring. Reviewed, dictated and finalized at location B. POT TENDER
== END 2021-08-25 12:18 | disposition home or self-care (01) ==
LOC: CHSIMG 12:19
PROVIDERS: PCP Internal Medicine; Visit Provider Internal Medicine
DX: J18.9 Pneumonia, unspecified organism (principal); Z51.89 Encounter for other specified aftercare
CPT/HCPCS: 71046

== ENCOUNTER 2021-11-29 14:32 | Outpatient (CLI) | payer MEDICARE, SELFPAY ==
--- NOTE | ~2021-11-29 | XR_ITS ---
XR chest 2V DATE: 11/29/2021 14:50 INDICATION: History of Covid pneumonia TECHNIQUE: PA and lateral views COMPARISON: 08/25/2021 2 view chest FINDINGS: Normal heart size. No hilar or mediastinal enlargement. Mild aortic tortuosity. No hilar or mediastinal enlargement. No pulmonary infiltrate or consolidation, pleural effusion or pulmonary vascular congestion or pneumo thorax is detected. Dextro scoliosis and degenerative spurring of the thoracic spine. IMPRESSION: No active cardiopulmonary disease Reviewed, dictated and finalized at location A.
== END 2021-11-29 14:33 | disposition home or self-care (01) ==
LOC: CHSIMG 14:33
PROVIDERS: PCP Internal Medicine; Visit Provider Internal Medicine
DX: Z09 Encounter for follow-up examination after completed treatment for conditions other than malignant neoplasm (principal); Z86.16 Personal history of COVID-19; Z87.01 Personal history of pneumonia (recurrent)
CPT/HCPCS: 71046

== ENCOUNTER 2022-04-20 13:00 | Outpatient (NON) | payer MEDICARE, SELFPAY | END 2022-04-20 13:01 | disposition home or self-care (01) | PROVIDERS: PCP Internal Medicine; Visit Provider Surgery | DX: Z86.010 Personal history of colon polyps (principal) | CPT/HCPCS: 88305 ==

== ENCOUNTER 2022-11-08 08:31 | Outpatient (CLI) | payer MEDICARE, SELFPAY ==
--- NOTE | ~2022-11-08 | US_ITS ---
EXAMINATION: US right upper quadrant DATE: 11/08/2022 08:58 INDICATION: Right upper quadrant abdominal pain. TECHNIQUE: Multiple grayscale and Doppler ultrasound images of the abdomen were obtained. COMPARISON: None FINDINGS: The visualized portions of the head, body, and tail of the pancreas are normal. There is di ffuse hepatic steatosis. No liver surface nodularity. There is normal flow in main portal vein. The g allbladder is normal in size and contains sludge. No gallstones or gallbladder wall thickening. There is no sonographic Piña sign. The common duct is normal and measures 4 mm. IMPRESSION: 1. Diffuse hepatic steatosis. 2. Gallbladder sludge. No evidence of acute cholecystitis. Reviewed, dictated and finalized at location A.
== END 2022-11-08 08:32 | disposition home or self-care (01) ==
LOC: CHSIMG 08:33
PROVIDERS: PCP Internal Medicine; Visit Provider Internal Medicine
DX: R10.11 Right upper quadrant pain (principal); K76.0 Fatty (change of) liver, not elsewhere classified; K83.9 Disease of biliary tract, unspecified
CPT/HCPCS: 76705

== ENCOUNTER 2022-12-12 07:57 | Outpatient (CLI) | payer MEDICARE, SELFPAY ==
--- NOTE | ~2022-12-12 | NM_ITS ---
EXAMINATION: NM hepatobiliary w pharm DATE: 12/12/2022 10:23 INDICATION: Right upper quadrant abdominal pain. COMPARISON: Ultrasound 11/08/2022 TECHNIQUE: 6.1 mCi Tc-99m mebrofenin (Choletec) was administered intravenously. Scintigraphic images of the abdomen were obtained for one hour. Then, 2.0 mcg sincalide (Kinevac) IV was administered, an d imaging was continued for 30 minutes. FINDINGS: There is normal clearance of radiotracer from the blood pool. There is homogeneous tracer u ptake by the liver. Activity progresses to the bowel and gallbladder. Gallbladder ejection fraction (GBEF) was 15%. Note that most patients with gallbladder dysfunction have GBEF < 35%, which overlaps with the broad normal range of 10-90%. IMPRESSION: 1. Gallbladder ejection fraction in the lower range of normal. Note that this value overlaps with th e range of values that may be seen with gallbladder dysfunction and/or chronic cholecystitis if there is appropriate clinical correlation. Reviewed, dictated and finalized at location A. IMPRESSION: 1. Gallbladder ejection fraction in the lower range of normal. Note that this value overlaps with the range of values that may be seen with gallbladder dysfu nction and/or chronic cholecystitis if there is appropriate clinical correlatio nHayden
== END 2022-12-12 07:58 | disposition home or self-care (01) ==
LOC: CHSIMG 07:58
PROVIDERS: PCP Internal Medicine; Visit Provider Internal Medicine
DX: R10.11 Right upper quadrant pain (principal)
CPT/HCPCS: 78227; A9537; J2805

== ENCOUNTER 2023-03-14 08:59 | Outpatient (CLI) | payer MEDICARE, SELFPAY ==
--- NOTE | 2023-03-14 09:06 | ECG_ITS ---
Measurements Intervals Daphne Rate: 56 P: 40 WY: 161 QRS: 16 QRSD: 97 T: 16 QT: 433 QTc: 418 Interpretive Statements SINUS BRADYCARDIA OTHERWISE NORMAL ELECTROCARDIOGRAM COMPARED TO ECG 07/12/2021 21:55:59 SINUS BRADYCARDIA NOW PRESENT Electronically Signed On 03-14-2023 13:21:42 CDT by Dewey Tucker M.D.
[2023-03-14 09:33] LABS: Alanine Aminotransferase 22 U/L (6-35); Alkaline Phosphatase 81 U/L (38-126); Amylase 94 U/L (30-110); Aspartate Amino Transferase 24 U/L (14-36); Bilirubin,Total 0.6 mg/dL (0.2-1.3); Lipase 226 U/L (23-300)
[2023-03-14 09:34] LABS: Anion Gap 5 mmol/L (8-16); Blood Urea Nitrogen 25 mg/dL (7-17); Calcium 9.1 mg/dL (8.4-10.2); Carbon Dioxide 25 mmol/L (22-30); Chloride 106 mmol/L (98-107); Estimated Glomerular Filt Rate 49; Glucose 135 mg/dL (65-110); Potassium 4.2 mmol/L (3.4-5.0); Sodium 136 mmol/L (137-145)
== END 2023-03-14 09:00 | disposition home or self-care (01) ==
LOC: ANHSURGERY 09:01
PROVIDERS: Anesthesiology; PCP Internal Medicine; Visit Provider Surgery
DX: K82.8 Other specified diseases of gallbladder (principal); I10 Essential (primary) hypertension; Z01.818 Encounter for other preprocedural examination
CPT/HCPCS: 36415; 80048; 80076; 82150; 83690; 86850; 86900; 86901; 93005

== ENCOUNTER 2023-03-17 01:15 | Day surgery (SDC) | payer MEDICARE, SELFPAY ==
[2023-03-13 11:18] VITALS: BMI 36.8
--- NOTE | 2023-03-13 11:28 | PC.NURSE ---
Report to the Outpatient Waiting Room, entrance under the green pavilion located off [facility], at time _1000 on date __03/17/23 . Planned Procedure Time: _1200 . Time changes happen often and if your time is changed the preop area will call you the afternoon before. - You and your visitor will be asked to self-screen and do not enter if you have any COVID symptoms. - A mask is optional within the hospital at this time. Patients may have clear liquids (water, carbonated beverages, clear teas, apple juice) until 3 hours prior to surgery with a maximum of 20 ounces. - No food from midnight until time of surgery - Infants may have breast milk until 4 hours before surgery, infant formula 6 hours prior to surgery. - Children will be allowed to drink immediately following surgery. If applicable, please bring a bottle or sippy cup to assist with drinking. Juice, water, soda, and popsicles are readily available. For infants on formula, please bring formula the day of surgery. Pacifiers are allowed. Take the following medications with a SIP of water the morning of surgery: EYE DROPS DO NOT STOP ANY OF YOUR OTHER PRESCRIPTION MEDICATIONS PRIOR TO SURGERY ?EXCEPT THE FOLLOWING Medications to discontinue per physician NONE Date to take last dose HIBICLENS SHOWER MORNING OF SURGERY Please no make-up, nail tajik, hairspray, perfume, deodorant, or body powder the day of surgery. No jewelry (including any body piercings) or valuables the day of surgery, leave them at home. Please take a shower or bath the night before, or the morning of, surgery with an antibacterial soap. Wear comfortable, loose fitting clothing. Children are encouraged to wear pajamas. - Jewelry must be removed prior to entering the operating room. Rings and piercings that are not removed may be cut off. - The hospital will not accept responsibility for valuables. - Please leave all valuables, including medications, at home the day of surgery. If you are going home after surgery, a licensed motor coach bus driver must drive you home. - NO public transportation without another adult if you receive anesthesia. - We recommend that an adult stay with you for 24 hours following discharge. - We also recommend that you do not drive, make important decision, drink alcoholic beverages, or take any drugs that were not prescribed by your health care provider for at least 24 hours after your discharge time. Follow any additional instructions given to you from your surgeon. If you or anyone in your household have experienced Covid symptoms in the past week, please notify your surgeon or the nurse liaison at the phone number below for possible testing. Telephone instructions given to __PATIENT and asked if any additional questions and then verbalized understanding. Patient advised to call surgeon office or pre surgery nurse liaison [phone] if any additional questions.
[2023-03-17] VITALS (9 sets, daily range): BP systolic 104–146; BP diastolic 45–71; PULSE 56–74; RESP 15–20; TEMP 35.9–36.7; O2SAT 92–97
[2023-03-17] MEDS: LACTATED RINGERS 1,000 ML 30 ML IV CONT ×2 (11:00→12:56)
--- NOTE | 2023-03-17 11:01 | WPDANESEPPF ---
Anes - Initial Pre Proc Eval Procedure: Operation Date: 03/17/23 12:00 Proposed Procedures p Laparoscopic Cholecystectomy, Possible Open - Sunil Newman DO Date/Time: 03/17/23 11:01 Surgeon: Sunil Newman DO Pre Op Diagnosis: Gallbladder Sludge, Biliary Dyskinesia Patient Data Age: 72 Gender: F Height: 1.7 m Weight: 106.6 kg Allergies Allergy/AdvReac Type Severity Reaction Status Date / Time amoxicillin Allergy Severe Hives,BLURRY Verified 03/13/23 11:24 VISION codeine Allergy Vomiting Verified 03/13/23 11:10 strawberry Allergy Swelling Verified 03/13/23 11:10 Home Medications Medication Instructions Recorded Confirmed Type carboxymethylcellulose sodium 0.5 1 drp EACH EYE QID 03/13/23 03/13/23 History % eye drops in a dropperette (Refresh Plus) indapamide 1.25 mg tablet 1.25 mg PO DAILY 03/13/23 03/13/23 History nebivolol 20 mg tablet 20 mg PO HS 03/13/23 03/13/23 History olmesartan 40 mg tablet 40 mg PO DAILY 03/13/23 03/13/23 History rosuvastatin 10 mg tablet 10 mg PO DAILY 03/13/23 03/13/23 History sodium chloride 5 % eye drops 1 drp EACH EYE QID 03/13/23 03/13/23 History Patient hx anesthesia problems: post op nausea/vomiting Family hx anesthesia problems: none Results Review: All pre-operative results and documents have been reviewed as part of the pre-operative evaluation. [facility] Past Medical History Medical History Hypertension Social History Social History Smoking status: Never smoker Alcohol intake: never Substance use: never Substance use type: does not use Living arrangements: alone Spiritual care concerns: No Anes - Eval Final PreProcedure Day of Procedure 03/17/23 11:01 Patient weight: obese Heart: regular rate and rhythm Lungs: clear to auscultation Airway: Mallampati scale class II Neurological: alert and oriented Last oral intake: >/= 8 hours ASA classification: III Emergent: no Anesthetic plan: proceed Anesthesia type and monitoring: general ETT and standard monitoring Results Review: All pre-operative results and documents have been reviewed as part of the pre-operative evaluation. Informed Consent: The patient's anesthetic plan and its attendant risks and benefits were discussed with the patient/family/POA. Questions were solicited and answers provided to the satisfaction of the patient/family/POA.
[2023-03-17] MEDS: SCOPOLAMINE 1.5 MG PATCH TRANSDERM (11:30)
[2023-03-17] MEDS: ACETAMINOPHEN 500 MG TABLET 1000 MG PO (11:30)
[2023-03-17] MEDS: KETOROLAC 15 MG/ML VIAL (*BKC) IV PUSH (11:30)
--- NOTE | 2023-03-17 11:51 | WPDHPUPDATE1 ---
History and Physical Update Update Date/Time: 03/17/23 11:51 History and Physical has been reviewed, including an updated exam of the patient. There are NO changes in the patient's condition. Risks, benefits, and alternatives have been discussed and questions answered. Patient agrees to proceed with procedure.
--- NOTE | 2023-03-17 11:51 | PM.IMHP ---
H&P: HPI History of Present Illness Date/Time: 03/17/23 11:51 Chief Complaint: Biliary dyskinesia Narrative: 72 yo woman presents for laparoscopic cholecystectomy. She reports no changes since last seen in office. Review of Systems Review of Systems: All systems reviewed & are unremarkable except as noted in HPI and below Constitutional: Constitutional: Denies chills, Denies fever(s), Denies headache(s) and Denies weight loss Eyes: Eyes: Denies change in vision ENT: Denies dizziness, Denies headache(s), Denies neck mass and Denies throat swelling Cardiovascular: Cardiovascular: Denies chest pain, Denies lightheadedness and Denies dyspnea Respiratory: Respiratory: Denies cough, Denies dyspnea and Denies wheezing Gastrointestinal: Gastrointestinal: Denies abdominal pain, Denies change in bowel habits, Denies nausea and Denies vomiting Genitourinary: Genitourinary: Denies hematuria and Denies dysuria Musculoskeletal: Musculoskeletal: Reports as per HPI Integumentary/Breasts: Skin/Breast: Reports as per HPI Neurologic: Denies dizziness and Denies headache(s) Allergic/Immunologic: Allergic/Immunologic: Denies throat swelling and Denies wheezing [facility] Past Medical History Medical History Hypertension Social History Social History Smoking status: Never smoker Alcohol intake: never Substance use: never Substance use type: does not use Living arrangements: alone Spiritual care concerns: No Meds Home Medications and Allergies Home Medications Medication Instructions Recorded Confirmed Type carboxymethylcellulose sodium 0.5 1 drp EACH EYE QID 03/13/23 03/13/23 History % eye drops in a dropperette (Refresh Plus) indapamide 1.25 mg tablet 1.25 mg PO DAILY 03/13/23 03/13/23 History nebivolol 20 mg tablet 20 mg PO HS 03/13/23 03/13/23 History olmesartan 40 mg tablet 40 mg PO DAILY 03/13/23 03/13/23 History rosuvastatin 10 mg tablet 10 mg PO DAILY 03/13/23 03/13/23 History sodium chloride 5 % eye drops 1 drp EACH EYE QID 08/07/23 08/07/23 History Allergies Allergy/AdvReac Type Severity Reaction Status Date / Time amoxicillin Allergy Severe Hives,BLURRY Verified 03/13/23 11:24 VISION codeine Allergy Vomiting Verified 03/13/23 11:10 strawberry Allergy Swelling Verified 03/13/23 11:10 Exam Const: General: no acute distress and alert Orientation/consciousness: patient oriented x3 HENMT: Head: normocephalic and atraumatic Ears: hearing grossly normal bilaterally Face/Nose/Sinus: Normal nares present Mouth: Yes Normal oral and palatal mucosa present Eyes: Periorbital: periorbital findings normal Sclera: sclerae normal EOM: EOMs intact bilaterally Neck: Neck: normal visual inspection, no lymphadenopathy and trachea midline Chest: Chest palpation & inspection: normal inspection of the chest Resp: Effort & Inspection: normal respiratory effort Auscultation: clear to auscultation bilaterally Cardio: Jugular venous distension: no JVD Rate: regular rate Rhythm: regular rhythm Heart sounds: S1 normal heart sound present and S2 normal heart sound present Peripheral pulses: Peripheral pulses 2+ throughout GI: Inspection: normal to inspection GI Palp: Yes Soft to palpation, No Tenderness to palpation present (GI), No Guarding due to palpation present (GI) and No Rebound tenderness present Percussion: Yes normal to percussion Auscultation: normal bowel sounds : General: Yes no CVA tenderness Back/Spine/Pelvis: Back: no CVA tenderness Neuro: General: patient oriented x3, no focal motor deficits and CN's II-XI intact bilaterally Cognition (Neuro): normal cognition Speech: normal speech Motor exam (neuro): 5/5 motor strength present throughout Extrem: General: capillary refill normal and no clubbing, cyanosis or edema Assessment and Plan Assessment and
[2023-03-17] MEDS: ceFAZolin 2 GM/D5W 50 ML 2 GM/50 ML BAG IVPB (12:02)
[2023-03-17] MEDS: BUPIVACAINE/EPINEPHRINE 0.25% 50 ML VIAL 30 ML INFILTRATE (12:22)
--- NOTE | 2023-03-17 12:46 | W.PM.PROC2 ---
Procedure Note - Detailed Date of Procedure 03/17/23 Pre-op Diagnosis Gallbladder Sludge, Biliary Dyskinesia Post-op Diagnosis Same Procedure Performed Laparoscopic Cholecystectomy Surgeon Sunil Newman, DO Anesthesia General and Local (0.5% bupivacaine) Indications This is a 72-year-old woman who presented with intermittent right upper quadrant pain with nausea and vomiting. She had been experiencing symptoms for about the last 5 months. A gallbladder ultrasound was initially done and this showed evidence of gallbladder sludge. HIDA scan was then also done which showed a gallbladder ejection fraction of 15%. Discussions were made with the patient about treatment options and decision was made to proceed with laparoscopic cholecystectomy, possible open. Findings Laparoscopic cholecystectomy was performed. The gallbladder was slightly dilated and had a few pericholecystic adhesions. The gallbladder wall otherwise appeared normal and no definite gallstones were identified. There did appear to be a possible lymph node or area of indurated gallbladder wall right near the fundus of the gallbladder. Cystic duct appeared normal in size. The gallbladder was removed and sent to the lab for pathology. Description of Procedure Procedure as well as risks, benefits, and alternatives were discussed with patient. Written consent was obtained and placed in chart prior to procedure. The patient was brought back to surgical suite. Patient was placed in supine position on operating table. Time-out was done to confirm patient and procedure. Patient was then intubated by the anesthesia department. Abdomen was prepped and draped in sterile fashion using chlorhexidine prep. 0.5% bupivacaine with epinephrine was infiltrated at each site of incision. A 5 millimeter incision was made near the umbilicus, and a 5 millimeter Optiview trocar was advanced through the abdominal layers under direct visualization. Once inside the abdominal cavity, carbon dioxide was insufflated to create a pneumoperitoneum. The camera was inserted and the abdomen was inspected. No immediate abnormalities were identified. The patient was placed in reverse Trendelenburg position and rotated slightly to the left. An 11 millimeter incision was made in the subxiphoid region, and an 11 millimeter trocar was inserted under direct visualization. Two 5 millimeter incisions were made in the right upper quadrant, and two 5 millimeter trocars were inserted under direct visualization. The gallbladder was identified and grasped at the fundus and retracted superiorly. It was then grasped at the infundibulum retracted laterally. Careful dissection around the neck of the gallbladder was performed using blunt dissection with a [place] grasper and hook electrocautery. The cystic duct was identified, and a window was created behind it. The cystic artery was also identified and a window was created behind it. The critical view of safety was identified, visualizing the cystic duct running directly into the neck of the gallbladder, and the cystic artery running directly into the wall of the gallbladder. A 5 millimeter clip brownfield redevelopment site manager was then used to place 2 clips proximally and 1 clip distally on both the cystic duct and cystic artery. They were then both transected using endoscopic scissors. Once safely away from the germaine hepatitis, the gallbladder was dissected free from the liver bed using hook electrocautery. Hemostasis was achieved along the way. The gallbladder was removed completely and then removed through the subxiphoid port. The liver bed was then inspected. Hemostasis appeared adequate, and our clips appeared secure. The area was gently irrigated with sterile saline. No other abnormalities were seen. The patient was flattened out in bed, and 1 final inspection was made around the abdominal cavity. The subxiphoid port was removed, and a Alvaro Matthew cone was used to approximate the fascia with an
== END 2023-03-17 15:33 | disposition home or self-care (01) ==
PROVIDERS: PCP Internal Medicine; Visit Provider Surgery
PROC: 0FT44ZZ Resection of Gallbladder, Percutaneous Endoscopic Approach (ICD-10-PCS; CPT 47562; principal; 2023-03-17 12:00)
DX: K81.1 Chronic cholecystitis (principal); I10 Essential (primary) hypertension; E66.9 Obesity, unspecified; Z68.36 Body mass index [BMI] 36.0-36.9, adult
CPT/HCPCS: 47562; 36415; 80048; 80076; 82150; 83690; 86850; 86900; 86901; 88304; 93005; A9270; J0690; J1100; J1170; J1885; J2405; J2704; J3010; J7030; J7120

== ENCOUNTER 2024-05-06 13:26 | Outpatient (CLI) | payer MEDICARE, SELFPAY ==
--- NOTE | ~2024-05-06 | MM_ITS ---
EXAMINATION: MM screening siobhan BI w audrey HISTORY: Screening TECHNIQUE: Craniocaudal and mediolateral oblique 3-D tomosynthesis images were obtained and synthetic 2-D images were generated. CAD analysis was submitted and interpreted. COMPARISON: Comparison to multiple prior studies sequentially, with oldest reviewed study dated Isaiah rison to multiple prior studies sequentially, with oldest reviewed study dated 10/15/2015. . BREAST PARENCHYMAL COMPOSITION: Not dense: There are scattered areas of fibroglandular density. FINDINGS: The left breast is stable without evidence for malignancy. There is a new asymmetry in the lower outer quadrant of the right breast, posterior third. IMPRESSION: 1. New right breast asymmetry. 2. Additional mammographic views and possible breast ultrasound are recommended. BI-RADS Category 0: Incomplete: Needs additional imaging evaluation. Reviewed, dictated and finalized at location B. IMPRESSION: 1. New right breast asymmetry. 2. Additional mammographic views and possible breast ultrasound are recommended . BI-RADS Category 0: Incomplete: Needs additional imaging evaluation.
== END 2024-05-06 13:27 | disposition home or self-care (01) ==
LOC: CHSIMG 13:27
PROVIDERS: PCP Internal Medicine; Visit Provider Internal Medicine
DX: Z12.31 Encounter for screening mammogram for malignant neoplasm of breast (principal); R92.8 Other abnormal and inconclusive findings on diagnostic imaging of breast
CPT/HCPCS: 77063; 77067

== ENCOUNTER 2024-05-08 08:01 | Outpatient (RCR) | payer MEDICARE, SELFPAY ==
--- NOTE | 2024-05-08 08:23 | OPREHPOC ---
Outpatient Therapy Plan of Care This is a Multidisciplinary Plan of Care that may contain components documented by all disciplines (PT, OT, and ST.) PT Problem 1 PT Problem #1 Knowledge Deficit PT Goal 1 Goal / Goal Update The patient will be independent in a home exercise program. Target Visit 4 PT Problem 2 PT Problem #2 Impaired Balance PT Goal 1 Goal / Goal Update The patient will improve Tinetti Balance Score to 20/24 points indicating a low fall risk. Target Visit 10 PT Problem 3 PT Problem #3 Impaired Functional Mobil PT Goal 1 Goal / Goal Update The patient will be able to ambulate 1,200 feet without an AD and no LOB during the 6 minute walk test to improve community ambulation. Target Visit 10 PT Problem 4 PT Problem #4 Impaired Vestibular Syste PT Goal 1 Goal / Goal Update The patient will demonstrate a negative [place] Hallpike test bilaterally indicating resolved positional vertigo. Target Visit 10
--- NOTE | 2024-05-08 08:24 | PTOPEVAL1 ---
Assessment and note entered by Pallavi Cole, PT Evaluation Information Assessment Status Evaluation Subjective Information Pt notes a decline in her leg function and endurance since having Covid in July 2021. She feels she can walk on a treadmill or with cart but when she tries to walk unsupported she had difficulty. She denies consistent back pain and has not been diagnosed with spinal stenosis. She reports she fell in Spring 2023 when she tripped over a tree root. She had a knot on her head from hitting it on a nearby picnic table. She was afraid of falling asleep that night but did not go to the ER. She does feel off balance through the day when doing things like vacuuming, turning in bed, and laying down. She also has been working with her doctor on her blood pressure medication and she has had low blood pressure all summer. She has been averaging 80/50 but today it was 112/60. She does take her blood pressure daily. She is noticing lightheadedness with laying to/from sitting, sitting to standing, and rolling in bed. When she feels dizzy, it feels like she is moving. Reported Pain Level Pain Score 0: Self Report Assessment PT Clinical Summary Alicia Castrejon presents with decreased balance and dizziness. She has not had a fall since Spring 2023 when she tripped over a tree root however, she experiences dizziness with bed mobility and daily activities. She also feels limited with how far she can walk without support from a cart or treadmill. She objectively demonstrates a positive left Taryn Hallpike test indicating positional vertigo; decreased dynamic balance; and decreased bilateral hip strength. She demonstrates a moderate fall risk per standard balance tests. She will benefit from skilled PT to address these limitations. Plan of Care Interventions Gait Training,Neuro Re-education,Patient/Caregiver Educati,Therapeutic Activities,Therapeutic Exercise,Other Other Interventions vestibular rehab PT Services Indicated Yes Treatment Frequency and 2 times a week for 10 visits Duration These treatments will address the objective and functional deficits as defined above. The patient will be advanced safely and appropriately in order for the patient to progress towards his/her prior level of function. Additional exercises will be introduced and as well as a comprehensive home exercise program upon discharge, if needed, ?to ensure carryover of functional gains achieved in the clinic. This treatment plan has been reviewed and agreement upon by the patient.
--- NOTE | 2024-06-06 08:18 | OPREHPOC ---
Outpatient Therapy Plan of Care This is a Multidisciplinary Plan of Care that may contain components documented by all disciplines (PT, OT, and ST.) PT Problem 1 PT Problem #1 Knowledge Deficit PT Goal 1 Goal / Goal Update The patient will be independent in a home exercise program. Target Visit 4 Progress Met PT Goal 2 Goal / Goal Update continue to progress PT Problem 2 PT Problem #2 Impaired Balance PT Goal 1 Goal / Goal Update The patient will improve Tinetti Balance Score to 20/24 points indicating a low fall risk. Target Visit 10 Progress Met PT Problem 3 PT Problem #3 Impaired Functional Mobil PT Goal 1 Goal / Goal Update The patient will be able to ambulate 1,200 feet without an AD and no LOB during the 6 minute walk test to improve community ambulation. Target Visit 10 Progress Met PT Problem 4 PT Problem #4 Impaired Vestibular Syste PT Goal 1 Goal / Goal Update The patient will demonstrate a negative Taryn Hallpike test bilaterally indicating resolved positional vertigo. Target Visit 10 Progress Not Met PT Goal 2 Goal / Goal Update Continue PT Problem 5 PT Problem #5 Impaired Range of Motion PT Goal 1 Goal / Goal Update New Goal: The patient will improve bilateral cervical rotation and lateral flexion AROM by 10+ degrees to improve mobility for driving.
--- NOTE | 2024-06-06 08:18 | PTOPPROG ---
Assessment and note entered by Pallavi Cole, PT Evaluation Information Assessment Status Progress Diagnosis Unsteady gait ICD-10 Condition Codes (PT) R26.9,BPPV H81.12 Onset 04/24/24 Subjective Information Alicia Castrejon reports that she is still getting dizziness with bending over and turning her head to the left. She has not been performing the home Esteban maneuver due to increased neck pain. 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 She is also comfortable walking around a store without a cart now. She has not had any falls. Assessment PT Clinical Summary Alicia Castrejon has completed 10 skilled PT visits for decreased balance and dizziness. She is reporting ongoing dizziness with bending over and turning her head to the left. She has developed intermittent neck pain from performing the home Esteban maneuver as well. She is demonstrating improved balance and is now a low fall risk. She is demonstrating decreased cervical AROM, tension in the cervical paraspinals and upper trapezius, and continues to have a positive Taryn Hallpike. She will continue to benefit from skilled PT to further address these limitations with a focus on cervical spine and vertigo. Plan of Care Interventions Electrical Stimulation,Hot Pack/Cold Pack,Manual Therapy,Neuro Re-education,Patient/Caregiver Educati,Therapeutic Activities,Therapeutic Exercise Other Interventions vestibular rehab PT Services Indicated Yes Treatment Frequency and 2 times a week for 8 visits Duration These treatments will address the objective and functional deficits as defined above. The patient will be advanced safely and appropriately in order for the patient to progress towards his/her prior level of function. Additional exercises will be introduced and as well as a comprehensive home exercise program upon discharge, if needed, ?to ensure carryover of functional gains achieved in the clinic. This treatment plan has been reviewed and agreement upon by the patient.
--- NOTE | 2024-07-09 08:06 | OPREHPOC ---
Outpatient Therapy Plan of Care This is a Multidisciplinary Plan of Care that may contain components documented by all disciplines (PT, OT, and ST.) PT Problem 1 PT Problem #1 Knowledge Deficit PT Goal 1 Goal / Goal Update The patient will be independent in a home exercise program. Target Visit 4 Progress Met PT Goal 2 Goal / Goal Update continue to progress Progress Met PT Problem 2 PT Problem #2 Impaired Balance PT Goal 1 Goal / Goal Update The patient will improve Tinetti Balance Score to 20/24 points indicating a low fall risk. Target Visit 10 Progress Met PT Problem 3 PT Problem #3 Impaired Functional Mobil PT Goal 1 Goal / Goal Update The patient will be able to ambulate 1,200 feet without an AD and no LOB during the 6 minute walk test to improve community ambulation. Target Visit 10 Progress Met PT Problem 4 PT Problem #4 Impaired Vestibular Syste PT Goal 1 Goal / Goal Update The patient will demonstrate a negative [place] Hallpike test bilaterally indicating resolved positional vertigo. Target Visit 10 Progress Not Met PT Goal 2 Goal / Goal Update Continue PT Problem 5 PT Problem #5 Impaired Range of Motion PT Goal 1 Goal / Goal Update New Goal: The patient will improve bilateral cervical rotation and lateral flexion AROM by 10+ degrees to improve mobility for driving. Progress Met
--- NOTE | 2024-07-09 08:07 | PTOPDC ---
Assessment and note entered by Pallavi Cole, PT Evaluation Information Assessment Status Discharge Diagnosis Unsteady gait ICD-10 Condition Codes (PT) Cervicalgia M54.2,R26.9,BPPV H81.12 Onset 04/24/24 Subjective Information Alicia Castrejon reports her neck has been feeling better and she has not had any pain. She has had intermittent dizziness but was also diagnosed with a chronic sinus infection that will not go away. She does notice her balance is improved. Reported Pain Level Pain Score 0: Self Report Assessment PT Clinical Summary Alicia Castrejon has completed 18 skilled PT visits for unsteady gait, vertigo, and cervical pain. She is reporting no cervical pain, improved balance, and less vertigo. She did have a MRI that showed she has a chronic sinus infection that her doctor does not think will ever go away. She demonstrates improved balance with a low fall risk now, improved cervical AROM, and improved shoulder strength. She does still have a positive left Taryn Hallpike. She is independent in a home exercise program for home Esteban maneuver, cervical ROM, balance exercises, and posture exercises. She has met all but one goal. She will be discharged from skilled PT. Plan of Care PT Services Indicated No
== END 2024-07-09 10:57 | disposition home or self-care (01) ==
LOC: CHSPT 08:01
PROVIDERS: Visit Provider Internal Medicine
DX: R42 Dizziness and giddiness (principal); R26.2 Difficulty in walking, not elsewhere classified
CPT/HCPCS: 97014; 97110; 97112; 97140; 97161; 97750; G0283

== ENCOUNTER 2024-05-09 09:36 | Outpatient (CLI) | payer MEDICARE, SELFPAY ==
--- NOTE | ~2024-05-09 | MMUS_ITS ---
EXAMINATION: MM diagnostic siobhan RT w audrey, US breast RT limited HISTORY: Follow-up right breast asymmetry TECHNIQUE: Additional 3-D tomosynthesis images of the right breast were performed and synthetic 2-D i mages were generated. CAD analysis was submitted and interpreted. High resolution Limited right breas t ultrasound was performed. COMPARISON: Comparison to multiple prior studies sequentially, with oldest reviewed study dated Isaiah rison to multiple prior studies sequentially, with oldest reviewed study dated 10/15/2015. . BREAST PARENCHYMAL COMPOSITION: Not dense: There are scattered areas of fibroglandular density. FINDINGS: MAMMOGRAPHIC FINDINGS: Persistent asymmetry in the mid lateral aspect of the right breast, posterior third is less dense wit h spot compression views, likely benign lymph node or asymmetric fibroglandular content. ULTRASOUND: Limited right breast ultrasound: No suspicious masses to suggest malignancy. IMPRESSION: 1. Right breast asymmetry is persistent, although likely benign. No sonographic correlate. 2. Recommend 6 month follow-up diagnostic right mammogram BI-RADS category 3, probably benign findings. Reviewed, dictated and finalized at location B. IMPRESSION: 1. Right breast asymmetry is persistent, although likely benign. No sonographic correlate. 2. Recommend 6 month follow-up diagnostic right mammogram BI-RADS category 3, probably benign findings.
== END 2024-05-09 09:37 | disposition home or self-care (01) ==
PROVIDERS: PCP Internal Medicine; Visit Provider Internal Medicine
DX: R92.8 Other abnormal and inconclusive findings on diagnostic imaging of breast (principal)
CPT/HCPCS: 76642; 77061; 77065; G0279

== ENCOUNTER 2024-06-15 08:26 | Outpatient (CLI) | payer MEDICARE, SELFPAY ==
--- NOTE | ~2024-06-15 | MR_ITS ---
EXAMINATION: MR brain/brain stem wo/w con DATE: 06/15/2024 09:32 INDICATION: Dizziness. Vertigo. TECHNIQUE: Magnetic resonance imaging (MRI) of the brain and brainstem was performed without and with 20 mL MultiHance intravenous contrast. COMPARISON: None. FINDINGS: There are scattered areas of nonspecific increased T2-weighted signal intensity in the cere bral white matter, which is within normal limits for the patient's age. There is no intracranial hemo rrhage, acute infarction, or abnormal intracranial mass lesion. The ventricles are normal in size. Th ere are likely changes of ocular lens replacement surgeries. There is mild mucosal thickening in the ethmoid sinuses. The mastoid air cells are normal. IMPRESSION: 1. Normal aging brain. Reviewed, dictated and finalized at location A. DIEM PHYSICAL THERAPIST ASSISTANT IMPRESSION: 1. Normal aging brain.
== END 2024-06-15 08:27 | disposition home or self-care (01) ==
PROVIDERS: PCP Internal Medicine; Visit Provider Internal Medicine
DX: R42 Dizziness and giddiness (principal)
CPT/HCPCS: 70553; A9577

== ENCOUNTER 2024-12-23 09:39 | Outpatient (CLI) | payer MEDICARE, SELFPAY ==
--- NOTE | ~2024-12-23 | MMUS_ITS ---
EXAMINATION: MM diagnostic siobhan RT w audrey, US breast RT limited HISTORY: Follow-up right breast asymmetry TECHNIQUE: Additional 3-D tomosynthesis images of the right breast were performed and synthetic 2-D i mages were generated. CAD analysis was submitted and interpreted. High resolution Limited right breas t ultrasound was performed. COMPARISON: Comparison to multiple prior studies sequentially, with oldest reviewed study dated 08/2020. BREAST PARENCHYMAL COMPOSITION: Not dense: There are scattered areas of fibroglandular density. FINDINGS: MAMMOGRAPHIC FINDINGS: Focal asymmetry In the lower outer quadrant of the right breast, posterior third, is stable. No new masses, calcifica tions or architectural distortion in the right breast to suggest malignancy. ULTRASOUND: Limited right breast ultrasound: Normal heterogeneous echotexture without focal solid or cystic mass. IMPRESSION: 1. No evidence for malignancy in the right breast. Stable focal asymmetry in the right breast, consis tent with benign fibroglandular tissue. 2. Routine yearly screening mammogram and regular clinical breast examination are recommended. BI-RADS Category 1: Negative Reviewed, dictated and finalized at location B. IMPRESSION: 1. No evidence for malignancy in the right breast. Stable focal asymmetry in th e right breast, consistent with benign fibroglandular tissue. 2. Routine yearly screening mammogram and regular clinical breast examination a re recommended. BI-RADS Category 1: Negative
--- OUTSIDE RECORDS SUMMARY | 2024-12-23 10:10 | XMS_ITS | Encounter Summary ---
Author Organization [facility] Address [address] [place] [address] Care Team Providers Care Wooden Tank Erector Name Role Phone Unavailable Primary Care Provider Unavailabl e Encounter Details Date Type Department Care Team (Late st Contact Info) Description 05/15/2024 Lab Requisition [facility] - DermPath Lab [address] [place] [phone] Arnel Bishop MD [facility] [address] [place] [phone] Neoplasm of uncertain behavior of skin Social History Tobacco Use Types Packs/Day Years Used Date Smoking Tobacco: Never Assessed Comments Unknown Sex and Gender Information Value Date Recorded Sex Assigned at Not on file Legal Sex Female 10:59 AM CDT Gender Identity Not on file Sexual Orientation Not on file documented as of this encounter Plan of Treatment Not on file documented as of this encounter Procedures Procedure Name Priority Date/Time Associated Diagnosis Comments DERMATOPATHOLOGY Routine 05/15/2024 12:0 0 AM CDT Neoplasm of uncertain behavior of skin documented in this encounter Results * DERMATOPATHOLOGY (05/15/2024 12:00 AM CDT) Case Report Dermatopathology Report Case: [id number] Authorizing Provider: Arnel Bishop MD Collected: 05/15/2024 12:00 AM Ordering Location: [facility] - Received: 05/16/2024 12:51 PM DermPath Lab Pathologist: Karon Pham MD Specimen: Skin, left forearm 3:32 PM CDT DERMATOPATHOLOGY LABORATORY Final Diagnosis Specimen A. 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 The specimen consists of a shave biopsy measuring 11x9x5 mm. Jar 0. 3:32 PM CDT DERMATOPATHOLOGY LABORATORY Microscopic Description Specimen A. SKIN, left forearm: The epidermis shows parakeratosis, full thickness disorderly maturation of keratinocytes, mitoses at different levels, and dyskeratotic cells. Focal nests are present in the dermis. Additional deeper sections were obtained and reviewed. 3:32 PM CDT DERMATOPATHOLOGY LABORATORY Disclaimer An external and internal positive and negative controls are appropriate for the histochemical, immunohistochemical and immunofluorescence stain(s) in this case (if any), except where stated explicitly. The performance characteristics of the stain(s) cited in this report were developed and its performance characteristic determined by the Dermatopathology Laboratory at [facility], directed by Dr. Demetrice Marinelli. These tests need not be, and therefore are not, approved by the [place] Food and Drug Administration. The tests are used for clinical purposes. Billing Codes Specimen Charges Stain Charges 05221 1 3:32 PM CDT DERMATOPATHOLOGY LABORATORY Embedded Images 3:32 PM CDT DERMATOPATHOLOGY LABORATORY Pathology/Cytolog y TISSUE SPECIMEN FROM SKIN / Unknown 05/15/2024 05/16/2024 12:51 PM CDT us Arnel Bishop MD LAB - PATHOLOGY/CYTOLOGY RADHA [facility]URTON Final Result DERMATOPATHOLOGY LABORATORY [facility] - Department of Dermatology [address], [address] [phone] documented in this encounter Visit Diagnoses Diagnosis Neoplasm of uncertain behavior of skin documented in this encounter
--- OUTSIDE RECORDS SUMMARY | 2024-12-23 10:10 | XMS_ITS | Data Portability ---
Author Organization [place] [facility] Address [address] [place] [phone] Assessment No assessment recorded. Plan of Treatment Reminders Order Date Submit Date Provider Last Modified By Organization Details Last Modified Time Details Appointments None recorded. Lab rapid SARS CoV 2 Ag, QL IA, respiratory specimen 2021 [facility], [address] [place] [address], [place], [phone], 12:21:15 rapid flu (A+B) 2021 [email or web address] [facility], [address] [place] [address], [place], [phone], 12:21:15 Referral None recorded. Procedures None recorded. Surgeries None recorded. Imaging None recorded. Medication Orders albuterol sulfate 2.5 mg/3 mL (0.083 %) solution for nebulizatio n 2021 [email or web address] Not available 12:44:27 albuterol sulfate HFA 90 mcg/actuati on aerosol inhaler 2021 [id number], [address] [place], [phone], 12:21:46 cephalexin 500 mg capsule 2021 [id number], [address], [place], [place], [phone], 12:21:43 Medrol (Stephan) 4 mg tablets in a dose pack 2021 [id number], [address], [place], [place], [phone], 12:22:32 Patient TargetsNo targets recorded. Patient Instructions Encounter Date Encounter Id Patient Instructions Last Modified By Organization Details Last Modified Time 07/29/2022 [id number] Discharge Instructions Not available 07/29/2022 12:21:35 Reason for Referral None Reported. Results Created Date Observation Date Name Description Value Unit Range Abnormal Flag Note LastModifiedBy Organization Detail LastModifiedTime 07/29/2007/29/2022 rapid flu (A+B) Flu [place] negati [place] [address] [address], [place], [address], 07/29/2022 12:19:06 07/29/20 22 07/29/2022 rapid flu (A+B) Flu B negati ve [place] [facility] [place] [address] [address], [place], [address], 07/29/2022 12:19:06 07/29/20 22 07/29/2022 rapid SARS CoV 2 Ag, QL IA, respi rator y speci men Rapid SARS Antigen negati [place] [address], [address], 07/29/2022 12:19:00 Result Notes None recorded. Problems Name Problem SNOMED Code Status Onset Date Resolution Date Notes Provider Name and Address Organization Details Recorded Time Cough 66864986 Active MEL Beyer - [facility] 11:52:41 Dizziness 856796754 [facility] Fever 182709568 Active [facility] 11:52:54 Headache 96764116 Active [facility] 11:53:00 Problem Notes None recorded. Procedures Surgical History Date Name Laterality Status Provider Name and Address Organization Details Recorded Time Cataract Surgery completed [facility] 07/29/2022 11:53:24 Imaging Results None recorded. Procedure Notes None recorded. Medical Equipment None Reported. Allergies Allergen ID Allergen Name Allergen Category Reaction Reaction Severity Criticality Documentation Date Start Date Code Code System Note Provider Name and Address Organization Details Recorded Time 69837 codeine medicatio n Not available Not available Not available 07/29/2022 2670 RxNorm [facility] 11:52:21 Medications Name Sig Start Date Stop Date Status Note LastModified by Organization Details LastModified Time albuterol sulfate 2.5 mg/3 mL (0.083 %) solution for nebulizatio n Inhale 2.5 mL 3 times a day by nebulizat ion route. 2021 active Not Available Not Available Not Avai lable cephalexin 500 mg capsule TAKE 1 CAPSULE BY MOUTH TWICE DAILY FOR 7 DAYS active Not Available Not Available No t Available methylpredn isolone 4 mg tablets in a dose pack FOLLOW PACKAGE DIRECTION S active Not Available Not Available No t Available albuterol sulfate HFA 90 mcg/actuati on aerosol inhaler INHALE 2 PUFFS BY MOUTH EVERY 4 HOURS NEEDED active Not Available Not Available No t Available amoxicillin 875 mg-potassiu m clavulanate 125 mg tablet 07/29 completed Not Available Not Available Not Available olmesartan 40 mg-hydrochl orothiazide 12.5 mg tablet active Not Available Not Available Not Available Vitals Date Recorded Heart rate Respiratory rate Oxygen saturation Oxygen saturation in Arterial blood by Pulse oximetry Body temperature Body height Body weight Systolic blood pressure Diastolic blood pressure Provider Name and Address Organization Details Last Updated DateTime 97 /min 18 /min 99 % 99 % 98.8 [degF] 165.1 cm 52365.3 2 g 151 mm[Hg] 84 mm[Hg] Ruchi Berg [facility] 11:51:56 Social History Question Answer Notes LastModified by Organizat ion Details LastModified Time Tobacco Smoking Status Never Smoker Ruchi hardwick, [facility] 07/29/2022 11:53:11 Alcohol Use None [email or web address] Information n ot available 07/29/2022 What Was The Date Of Your Most Recent Tobacco Screening? 07/29/2022 [email or web address] Information not available 07/29/2022 Are You Passively Exposed To Smoke? No [email or web address] Information not available 07/29/2022 Sex: Unknown Functional Status Question Answer Note LastModified by Organization D etails LastModified Time Do you or have you ever used any other forms of tobacco or nicotine? No [email or web address] Information not available 07/29/2022 Mental Status None recorded. Family History Nothing Reported. Medical History Condition Response Hypertension Y Gynecological History Statement/Question Response Current Control Method Menopause Obstetrics History GPAL:G 0 P 0 0 0 0 Past Encounters Encounter ID Performer Location Encounter Start Date Encounter Closed Date Diagnosis/Indication Diagnosis SNOMED-CT Code Diagnosis ICD10 Code Diagnosis Note [id number] Yudy Martinez MD [address] [phone] 07/29/2022 10:29:39 07/29/2022 12:25:00 Acute bronchitis with bronchospasm 57386593 J20.9 Health Concerns Section Related Observation LastModified by Organization Detai ls LastModified Time None Recorded Concern Status LastModified by Organization Details LastModified Time None Recorded Advance Directives Directive None Recorded Payers Insurance Date Sequence Insurance Name Policy Number Policy Hughes Covered Member ID Hughes Member ID Guarantor Name 07/29/2022 2 [place] Alicia D Tiburzi [id number] Alicia Tiburzi 08/26/2022 [place] Alicia D Tiburzi [id number] Alicia Tiburzi 07/29/2022 1 [place] Alicia D Tiburzi [id number] Alicia Castrejon 08/26/2022 1 [facility] (MEDICARE REPLACEMENT/A DVANTAGE - PPO) [id number] Alicia Castrejon [id number] Alicia Castrejon Notes Date Note Type Note Provider Name and Address Organization Details Recorded Time 07/29/2022 text/html CoughReported bypatient.Quality:b arking Severity:moderate Onset/Duration:7 day(s) ago Timing:episodic; multiple times per day Context:non-smoker Associated Symptoms:fever;whee zing YUDY MARTINEZ [place], [place] - [facility], [facility] 07/29/2022 12:23:35 OBGyn Episode No OBEpisode recorded.
--- OUTSIDE RECORDS SUMMARY | 2024-12-23 10:10 | XMS_ITS | Clinical Summary ---
Author Organization [facility] Address [address] [place] [address] Care Team Providers Care Toe Sewer Name Role Phone Unavailable Primary Care Provider Unavailabl e Source Comments [facility],non-owned Affiliates and Associated Physician Practices is amultiple site organization consisting of ambulatory clinics and hospital sitesin [place], [place], [place] and [place]. This disclosure is being madepursuant to the Care Everywhere program and may not contain all information available regarding this patient. Last updated 18.[facility] Encounters Date Type Department Care Team Description 12/18/2024 Lab Requisition [facility] - DermPath Lab [address] [place] [address] Sandy Wade MD Squamous cell carcinoma of skin of left upper limb, including shoulder from Last 3 Months Social History Tobacco Use Types Packs/Day Years Used Date Smoking Tobacco: Never Assessed Comments Unknown Sex and Gender Information Value Date Recorded Sex Assigned at Not on file Legal Sex Female 10:59 AM CDT Gender Identity Not on file Sexual Orientation Not on file Plan of Treatment Health Maintenance Due Date Last Done Comments BONE DENSITY TESTING 1950 COLOGUARD (AGES 45-75) - COL ON CA SCREENING 1950 COLON MONITORING 1950 COLONOSCOPY - COLON CA SCREENING 1950 CT COLONOGRAPHY - COLON CA SCREENING 1950 Colorectal Cancer Screening 1950 FIT - COLON CA SCREENING 1950 FLEX SIG - COLON CA SCREENING 1950 LIPID TESTING 1950 MAMMOGRAM 1950 HEPATITIS C SCREENING 06/08/1969 DTAP/TDAP/TD VACCINES (1 - Tdap) 1970 PNEUMOCOCCAL VACCINE 50+ (1 of 1 - PCV) 2001 ZOSTER VACCINE (1 of 2) 2001 COVID-19 VACCINE (2023-2 5 season) 2024 DEPRESSION SCREENING 08/07/2024 MEDICARE AWV CALENDAR YEAR 2024 INFLUENZA VACCINE (Season Ended) 2025 Respiratory Syncytial Virus (RSV) Vaccine Pt: or over 60 yrs (1 - 1-dose 75+ series) 2026 HEPATITIS B VACCINE Aged Out No longe r eligible based on patient's age to complete this topic HIB VACCINE Aged Out No longer eligi ble based on patient's age to complete this topic HPV VACCINE Aged Out No longer eligi ble based on patient's age to complete this topic MENINGOCOCCAL (Group B) VACC INE SHARED DECISION-MAKING Aged Out No longer eligibl e based on patient's age to complete this topic MENINGOCOCCAL GROUPS A/C/Y/W VACCINE Aged Out No longer eligible b ased on patient's age to complete this topic [place] [address] [address] [place] [address] MEDICARE ADV AENA MEDICARE ADV
--- OUTSIDE RECORDS SUMMARY | 2024-12-23 10:10 | XMS_ITS | Encounter Summary ---
Author Organization [facility] Address [address] [place] [address] Care Team Providers Care Clinical Phlebotomist Name Role Phone Unavailable Primary Care Provider Unavailabl e Encounter Details Date Type Department Care Team (Late st Contact Info) Description 12/18/2024 Lab Requisition [facility] - DermPath Lab [address] [place] [phone] Sandy Wade MD [address] [place] [address] [place] [phone] Squamous cell carcinoma of skin of left upper limb, including shoulder Social History Tobacco Use Types Packs/Day Years Used Date Smoking Tobacco: Never Assessed Comments Unknown Sex and Gender Information Value Date Recorded Sex Assigned at Not on file Legal Sex Female 10:59 AM CDT Gender Identity Not on file Sexual Orientation Not on file documented as of this encounter Plan of Treatment Pending Results Name Type Priority Associated Diagnoses Date /Time DERMATOPATHOLOGY Pathology Cytology Routine Squamous cell carcinoma of skin of left upper limb, including shoulder 12/18/2024 12:00 AM CDT documented as of this encounter Visit Diagnoses Diagnosis Squamous cell carcinoma of skin of left upper limb, including shoulder Squamous cell carcinoma of skin of upper limb, including shoulder documented in this encounter
--- OUTSIDE RECORDS SUMMARY | 2024-12-23 10:10 | XMS_ITS | Clinical Summary ---
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 Gender Identity Not on file Sexual Orientation Not on file Plan of Treatment Health Maintenance Due Date Last Done Comments Colorectal Cancer Screening Colonoscopy (10 Years) 1951 Hepatitis C 1969 DTaP, Tdap and Td Vaccines ( 1 - Tdap) 1970 Mammogram Screening 1991 Pneumococcal Vaccine: 50+ Ye ars (1 of 1 - PCV) 2001 Zoster Vaccines (1 of 2) 2001 Dexa Scan (General) 2016 COVID-19 Vaccine (2023-2 5 season) 2024 RSV Immunization or 60+ Years (1 - 1-dose 75+ series) 2026 Meningococcal B Vaccine Aged Out No l onger eligible based on patient's age to complete this topic Meningococcal Vaccine Aged Out No yovani daljit eligible based on patient's age to complete this topic RSV Immunizations Under 20 Months Aged Out No longer eligible based on patient's age to complete this topic
--- OUTSIDE RECORDS SUMMARY | 2024-12-23 10:10 | XMS_ITS | Encounter Summary ---
Author Organization [facility] Address [address] [place] [address] Care Team Providers Care Senior Web Architect Name Role Phone Unavailable Primary Care Provider Unavailabl e Encounter Details Date Type Department Care Team (Late st Contact Info) Description 05/11/[address] [facility] - DermPath Lab [address] [place] [phone] Arnel Bishop MD [facility] [address] [place] [phone] Social History Tobacco Use Types Packs/Day Years [...] Priority Date/Time Associated Diagnosis Comments DERMATOPATHOLOGY Routine 05/10/2023 12:0 0 AM CDT documented in this encounter Results * DERMATOPATHOLOGY (05/10/2023 12:00 AM CDT) Case Report Dermatopathology Report Case: [id number] Authorizing Provider: Arnel Bishop MD Collected: 05/10/2023 12:00 AM Ordering Location: [facility] Derm[facility] Lab Received: 05/11/2023 02:28 PM Pathologist: Sosa Soni MD Specimens: A) - Skin, nasal tip B) - Skin, left chest 5:10 PM CDT DERMATOPATHOLOGY LABORATORY Final Diagnosis Specimen A. SKIN, nasal tip: ANGIOFIBROMA (FIBROUS PAPULE) (D21.0) (see microscopic description) Specimen B. SKIN, left chest: SEBORRHEIC KERATOSIS, RETICULATED (ADENOID) TYPE, INFLAMED(L82.1) 3 5:10 PM CDT DERMATOPATHOLOGY LABORATORY at 1710 CDT Clinical History A: Basal Cell Carcinoma vs. Actinic Keratosis vs. Basal Cell Carcinoma vs. Scar B: Neoplasm of Uncertain Behavior vs. Irritated Seborrheic Keratosis vs. Melanoma 3 5:10 PM CDT DERMATOPATHOLOGY LABORATORY Gross Description Specimen A: Received is one formalin filled container labeled with the patient's name and designated nasal tip. The specimen consists of two (2) pieces of a shave biopsy measuring 5x2x1, 5x2x1 mm. Jar 0. Specimen B: Received is one formalin filled container labeled with the patient's name and designated left chest. The specimen consists of a shave biopsy measuring 6x4x1 mm. Jar 0. 3 5:10 PM CDT DERMATOPATHOLOGY LABORATORY Microscopic Description Specimen A. SKIN, nasal tip: This dome-shaped lesion contains dilated blood vessels, coarse collagen bundles, and stellate fibroblasts. Additional deeper sections were obtained and reviewed. Specimen B. SKIN, left chest: There is reticulated hyperplasia of the epidermis with overlying delicate hyperorthokeratosis . Hyperpigmentation is present in the basaloid cells. There is a lymphohistiocytic infiltrate within the papillary dermis that is focally lichenoid. 3 5:10 PM CDT DERMATOPATHOLOGY LABORATORY Disclaimer An external and internal positive and negative controls are appropriate for the histochemical, immunohistochemical and immunofluorescence stain(s) in this case (if any), except where stated explicitly. The performance characteristics of the stain(s) cited in this report were developed and its performance characteristic determined by the Dermatopathology Laboratory at [facility], directed by Dr. Demetrice Marinelli. These tests need not be, and therefore are not, approved by the [place] Food and Drug Administration. The tests are used for clinical purposes. Billing Codes Specimen Charges Stain Charges 88844 [id number] 1 1 3 5:10 PM CDT DERMATOPATHOLOGY LABORATORY Embedded Images 3 5:10 PM CDT DERMATOPATHOLOGY LABORATORY Pathology/Cytology TISSUE SPECIMEN FROM SKIN / Unknown 05/10/2023 05/11/2023 2:28 PM CDT Miscellaneous samples (specimen) TISSUE SPECIMEN FROM SKIN / Unknown 05/10/2023 05/11/2023 2:28 PM CDT Arnel Bishop MD LAB - PATHOLOGY/CYTOLOGY HENRRYE JOSEPHINE Final Result DERMATOPATHOLOGY LABORATORY [facility] - Department of Dermatology [facility] [address] [place] [address], [address] [phone] documented in this encounter Visit Diagnoses Not on filedocumented in this encounter
== END 2024-12-23 09:40 | disposition home or self-care (01) ==
LOC: CHSIMG 09:42
PROVIDERS: PCP Internal Medicine; Visit Provider Internal Medicine
DX: R92.8 Other abnormal and inconclusive findings on diagnostic imaging of breast (principal)
CPT/HCPCS: 76642; 77061; 77065; G0279